=== PATIENT | female | born 1995 | race Caucasian/White ===

== ENCOUNTER 2017-04-20 16:21 | Observation (INO) | payer OTHER ==
[~2017-04-20] VITALS: Ht 165.1 cm; Wt 78.9 kg
[2017-04-20 20:06] VITALS: BP 117/71
== END 2017-04-20 20:50 | disposition home or self-care (01) ==
LOC: MLD 16:21
PROVIDERS: ADMIT Obstetrics & Gynecology; ATTEND Obstetrics & Gynecology
DX: O26.893 Other specified pregnancy related conditions, third trimester (principal); R10.9 Unspecified abdominal pain; Z3A.38 38 weeks gestation of pregnancy
CPT/HCPCS: 76805; G0378; Q0092; 59025; 81000

== ENCOUNTER 2017-04-23 18:17 | Inpatient (IN) | payer OTHER ==
[~2017-04-23] VITALS: Ht 162.6 cm; Wt 80.3 kg
[2017-04-23] MEDS ORDERED: AMPICILLIN 2,000 MG in NACL 0.9% 100 ML IV SCH (18:55)
[2017-04-23] MEDS ORDERED: OXYTOCIN 20 UNITS in LACTATED RINGERS 1,000 ML IV SCH (19:42)
[2017-04-23 19:45] LABS: BASOPHILS # (AUTO) 0.1 K/uL (0.00-0.22); BASOPHILS % (AUTO) 0.7 % (0.0-2.0); EOSINOPHILS # (AUTO) 0.1 K/uL (0-0.4); EOSINOPHILS % (AUTO) 0.8 % (0.0-4.0); HEMOGLOBIN 13.1 g/dL (12.0-16.0); LYMPHOCYTES # (AUTO) 1.9 K/uL (2.5-16.5); LYMPHOCYTES % (AUTO) 17.2 % (20.5-51.1); MEAN CORPUSCULAR HEMOGLOBIN 34 pg (27-31); MEAN CORPUSCULAR HGB CONC 35 g/dL (33-37); MEAN CORPUSCULAR VOLUME 98 fL (80-94); MONOCYTES # (AUTO) 0.9 K/uL (0.8-1.0); MONOCYTES % (AUTO) 8.3 % (1.7-9.3); NEUTROPHILS # (AUTO) 8.2 K/uL (1.8-7.7); PLATELET COUNT (AUTO) 232 K/uL (140-450); RED BLOOD CELL COUNT(AUTO) 3.89 MIL/uL (4.20-5.40); RED CELL DISTRIBUTION WIDTH 12.8 % (11.6-13.7); WHITE BLOOD COUNT (AUTO) 11.3 K/uL (4.8-10.8)
[2017-04-23] MEDS ORDERED: MISOPROSTOL 25 MCG TAB VG SCH (19:45)
[2017-04-23] MEDS ORDERED: NALBUPHINE 10 MG/ML AMP IVP PRN (19:45)
[2017-04-23] MEDS ORDERED: AMPICILLIN 1,000 MG in NACL 0.9% 50 ML IV SCH (20:00)
[2017-04-23] MEDS ORDERED: MISOPROSTOL 25 MCG TAB ONE (20:16)
[2017-04-23 20:25] LABS: APPEARANCE,URINE CLEAR (CLEAR); BILIRUBIN,URINE NEGATIVE (NEGATIVE); BLOOD, URINE TRACE-I (NEGATIVE); LEUKOCYTE ESTERASE ,URINE NEGATIVE (NEGATIVE); NITRITE, URINE NEGATIVE (NEGATIVE); PH,URINE 6.5 (5.0-9.0); UGLUCOSE NEGATIVE (NEGATIVE)
[2017-04-23 20:28] LABS: COLOR,URINE STRAW (YELLOW)
[2017-04-23 20:30] LABS: ANION GAP 14.1 (8-16); CREATININE 0.6 mg/dL (0.6-1.3); POTASSIUM 4.1 mmol/L (3.5-5.1)
[2017-04-23 20:37] LABS: ALBUMIN 2.6 g/dL (3.4-5.0); TOTAL BILIRUBIN 0.2 mg/dL (0.0-1.0)
[2017-04-23 20:41] LABS: RBC,URINE 0-5 (RARE) /HPF (0-5); WBC,URINE 0-5 (RARE) /HPF (0-5)
[2017-04-23 21:18] VITALS: BP 113/75
[2017-04-23] MEDS ORDERED: AMPICILLIN 2,000 MG VIAL ONE (21:57)
[2017-04-23] MEDS: LACTATED RINGERS 1,000 ML IV SCH (21:59)
[2017-04-24] MEDS ORDERED: ROPIVACAINE 0.2%/NS PREMIX 250 ML EPI ONE ×2 (00:33→10:14)
[2017-04-24] MEDS ORDERED: ROPIVACAINE 0.2%/NS PREMIX 250 ML EPI SCH (01:05)
[2017-04-24] MEDS: LACTATED RINGERS 1,000 ML IV SCH (02:05)
[2017-04-24] MEDS ORDERED: AMPICILLIN 1,000 MG VIAL ONE ×4 (02:09→18:06)
--- NOTE | 2017-04-24 09:16 | NUR ---
PATIENT HAS BEEN SCREENED AND CATEGORIZED LOW NUTRITION RISK. PATIENT WILL BE SEEN WITHIN 7 DAYS OF ADMISSION. 04/30/[address]
[2017-04-24] MEDS ORDERED: OXYTOCIN 10 UNITS/ML VIAL ONE (18:54)
[2017-04-24] MEDS ORDERED: OXYTOCIN 20 UNITS in LACTATED RINGERS 1,000 ML IV SCH (20:27)
[2017-04-24] MEDS ORDERED: ACETAMINOPHEN 325 MG TAB PO PRN (20:30)
[2017-04-24] MEDS ORDERED: DOCUSATE SODIUM 100 MG GELCAP PO PRN (20:30)
[2017-04-24] MEDS ORDERED: BENZOCAINE/MENTHOL 20%-0.5% 60 GM CAN TP PRN (20:30)
[2017-04-24] MEDS ORDERED: MEASLES, MUMPS, AND RUBELLA 1 VIAL SQVAC PRN (20:30)
[2017-04-25 08:15] LABS: HEMATOCRIT 34.4 % (36-48); HEMOGLOBIN 11.5 g/dL (12.0-16.0); MEAN CORPUSCULAR HEMOGLOBIN 33 pg (27-31); MEAN CORPUSCULAR HGB CONC 34 g/dL (33-37); MEAN CORPUSCULAR VOLUME 99 fL (80-94); PLATELET COUNT (AUTO) 198 K/uL (140-450); RED BLOOD CELL COUNT(AUTO) 3.49 MIL/uL (4.20-5.40); RED CELL DISTRIBUTION WIDTH 12.4 % (11.6-13.7)
[2017-04-25 09:20] LABS: LYMPHOCYTES % (MANUAL) 11 % (20-46); MONOCYTES % (MANUAL) 3 % (5-12)
[2017-04-25] MEDS: oxyCODONE/APAP 5/325 MG 1 TAB TAB PO PRN (20:52)
[2017-04-26] MEDS: oxyCODONE/APAP 5/325 MG 1 TAB TAB PO PRN (06:25)
== END 2017-04-26 15:30 | disposition home or self-care (01) | DRG 560 ==
LOC: MLD 18:17 → MFCC 04-24 23:30
PROVIDERS: ADMIT Obstetrics & Gynecology; ATTEND Obstetrics & Gynecology
PROC: 10E0XZZ Delivery of Products of Conception, External Approach (ICD-10-PCS; principal; 2017-04-24)
PROC: 10907ZC Drainage of Amniotic Fluid, Therapeutic from Products of Conception, Via Natural or Artificial Opening (ICD-10-PCS; 2017-04-24)
PROC: 0KQM0ZZ Repair Perineum Muscle, Open Approach (ICD-10-PCS; 2017-04-24)
PROC: 3E0P3VZ Introduction of Hormone into Female Reproductive, Percutaneous Approach (ICD-10-PCS; 2017-04-24)
PROC: 3E0R3BZ Introduction of Anesthetic Agent into Spinal Canal, Percutaneous Approach (ICD-10-PCS; 2017-04-24)
PROC: 00HU33Z Insertion of Infusion Device into Spinal Canal, Percutaneous Approach (ICD-10-PCS; 2017-04-24)
DX: O99.824 Streptococcus B carrier state complicating childbirth (principal); O69.81X0 Labor and delivery complicated by cord around neck, without compression, not applicable or unspecified; O70.1 Second degree perineal laceration during delivery; Z37.0 Single live birth; Z3A.39 39 weeks gestation of pregnancy
CPT/HCPCS: 36415; 59200; 59409; 80053; 81001; 85025; 86592; 86886; 86900; 86901; J0290; J2590; J2795; J7120